=== PATIENT | male | born 1960 | race Caucasian/White ===

== ENCOUNTER 2017-12-16 07:16 | Emergency (ER) | payer OTHER ==
[~2017-12-16] VITALS: Ht 182.9 cm; Wt 127.0 kg
[~2017-12-16 07:16] MED LIST: LEVO500T59 PO
[2017-12-16] MEDS ORDERED: IV NORMAL SALINE 1000ML BAG 1,000 ML IV ONE (07:30)
[2017-12-16 07:38] LABS: BASO % 1 % (0-3); EOS # 0.3 x10^3/uL (0.0-0.7); EOS % 5 % (0-3); HEMATOCRIT 46.4 % (39.0-53.0); HEMOGLOBIN 16.4 g/dL (13.0-17.5); LYMPH # 1.2 x10^3/uL (1.0-4.8); LYMPH % 19 % (24-48); MEAN CORPUSCULAR HEMOGLOBIN 34 pg (25-35); MEAN CORPUSCULAR HGB CONC 35 g/dL (31-37); MEAN CORPUSCULAR VOLUME 96 fL (79-100); MONO # 0.6 x10^3/uL (0.0-1.1); MONO % 9 % (0-9); NEUT # 4.4 x10^3uL (1.8-7.7); NEUT % 67 % (31-73); PLATELET COUNT 274 x10^3/uL (140-400); RED BLOOD COUNT 4.86 x10^6/uL (4.30-5.70); RED CELL DISTRIBUTION WIDTH 12.6 % (11.5-14.5); WHITE BLOOD COUNT 6.5 x10^3/uL (4.0-11.0)
[2017-12-16 07:47] LABS: CALCIUM 9.7 mg/dL (8.5-10.1); CREATININE 1.5 mg/dL (0.7-1.3); GFR 47.9; POTASSIUM 4.3 mmol/L (3.5-5.1)
[2017-12-16 07:48] LABS: PROTHROMBIN TIME PATIENT 12.4 SEC (11.7-14.0)
[2017-12-16 07:55] LABS: ALBUMIN 4.1 g/dL (3.4-5.0); ALBUMIN/GLOBULIN RATIO 1.4 (1.0-1.7); MAGNESIUM 2.1 mg/dL (1.8-2.4); TOTAL BILIRUBIN 0.4 mg/dL (0.2-1.0); TOTAL PROTEIN 7.1 g/dL (6.4-8.2)
--- NOTE | 2017-12-16 08:25 | EKG ---
[facility] [address] [place] [address] Test Date: 2017-12-16 Test Time: 07:08:00 Pat Name: CÉSAR GONSALES Department: Room: Gender: M Relief Cook: : 1960 Requested By: NELY HUTSON Order Number: [id number] Reading MD: Sarabjit Flores MD Measurements Intervals [place] Rate: 71 P: 36 [place]: 158 QRS: -13 QRSD: 102 T: 49 QT: 386 QTc: 424 Interpretive Statements SINUS RHYTHM Electronically Signed On 12-16-2017 12:28:03 CDT by Sarabjit Flores MD
[2017-12-16 08:35] LABS: BILIRUBIN,URINE NEGATIVE (NEG); CLARITY,URINE CLEAR; COLOR,URINE YELLOW; NITRITE,URINE NEGATIVE (NEG); PROTEIN,URINE NEGATIVE (NEG-TRACE)
--- NOTE | 2017-12-16 08:44 | RAD ---
CT of the head without contrast, 12/16/2017: HISTORY: Dizziness, near syncope The ventricles are within normal limits in size. There is no shift of the midline structures. There is no evidence of acute intracranial hemorrhage or mass effect. IMPRESSION: No acute intracranial abnormality is detected. Electronically signed by: Tato Bello MD (12/16/2017 8:41 AM) [facility]
[2017-12-16 09:06] LABS: RBC,URINE 0 /HPF (0-2); WBC,URINE RARE /HPF (0-4)
[2017-12-16 09:07] LABS: BACTERIA,URINE 0 /HPF (0-FEW); SQUAMOUS EPITHELIAL CELL,UR FEW /LPF
--- NOTE | 2017-12-16 09:25 | PHYS DOC ---
Past Medical History Past Medical History: Hypertension, Prostatitis, Other Additional Past Medical Histor: lower back pain Past Surgical History: Other Additional Past Surgical Histo: R knee orthoscopy Alcohol Use: Occasionally Drug Use: None Adult General Chief Complaint Chief Complaint: DIZZY/LIGHT HEADED HPI HPI Patient is a 57 year old works for a [employer]. He went to work today at 5:30 am. He did not eat breakfast, not drinking any water. He worked yesterday. He did not drink any water last night. While he was at work , he felt dizzy, felt like he was going to pass out so he sat himself down. He was sweating and pale. He denied any chest pain, no headache. Patient'S employer called EMS to take him here for evaluation. Patient denies any fever, no abdominal pain, no nausea vomiting. he has not had this symptom the past. Patient blood sugar was 84 per EMS. She had no history of coronary artery disease, no history of diabetic, no history of blood clot disorder. Review of Systems Review of Systems Constitutional: Denies fever or chills [] Eyes: Denies change in visual acuity, redness, or eye pain [] HENT: Denies nasal congestion or sore throat [] Respiratory: Denies cough or shortness of breath [] Cardiovascular: NO CHEST PAIN GI: Denies abdominal pain, nausea, vomiting, bloody stools or diarrhea [] : Denies dysuria or hematuria [] Musculoskeletal: Denies back pain or joint pain [] Integument: Denies rash or skin lesions [] Neurologic:POSITIVE FOR WEAK, DIZZY. Endocrine: Denies polyuria or polydipsia POSITIVE FOR SWEATING. All other systems were reviewed and found to be within normal limits, except as documented in this note. Current Medications Current Medications Current Medications Medications (Trade) Dose Ordered Sig/Tom Start Time Stop Time Status Last Admin Dose Admin Sodium Chloride 1,000 ml @ 1,000 mls/hr 1X ONCE 12/16/17 07:30 12/16/17 08:29 DC 12/16/17 07:35 1,000 MLS/HR Allergies Allergies Allergies Coded Allergies Type Severity Reaction Last Updated Verified No Known Drug Allergies 09/24/15 No Physical Exam Physical Exam Constitutional: Well developed, well nourished, no acute distress, non-toxic appearance. [] HENT: Normocephalic, atraumatic, bilateral external ears normal, oropharynx moist, no oral exudates, nose normal. [] Eyes: PERRLA, EOMI, conjunctiva normal, no discharge. [] Neck: Normal range of motion, no tenderness, supple, no stridor. [] Cardiovascular:Heart rate regular rhythm, no murmur [] Lungs & Thorax: Bilateral breath sounds clear to auscultation [] Abdomen: Bowel sounds normal, soft, no tenderness, no masses, no pulsatile masses. [] Skin: Warm, dry, no erythema, no rash. [] Back: No tenderness, no CVA tenderness. [] Extremities: No tenderness, no cyanosis, no clubbing, ROM intact, no edema. [] Neurologic: Alert and oriented X 3, normal motor function, normal sensory function, no focal deficits noted. [] Psychologic: Affect normal, judgement normal, mood normal. [] Current Patient Data Vital Signs Vital Signs Date Time Temp Pulse Resp B/P (MAP) Pulse Ox O2 Delivery O2 Flow Rate FiO2 12/16/17 10:00 62 20 96 12/16/17 07:18 98.4 140/78 (98) Room Air 98.4 Lab Values Laboratory Tests Test 12/16/17 07:20 12/16/17 07:22 12/16/17 08:20 White Blood Count 6.5 x10^3/uL (4.0-11.0) Red Blood Count 4.86 x10^6/uL (4.30-5.70) Hemoglobin 16.4 g/dL (13.0-17.5) Hematocrit 46.4 % (39.0-53.0) Mean Corpuscular Volume 96 fL (79-100) Mean Corpuscular Hemoglobin 34 pg (25-35) Mean Corpuscular Hemoglobin Concent 35 g/dL (31-37) Red Cell Distribution Width 12.6 % (11.5-14.5) Platelet Count 274 x10^3/uL (140-400) Neutrophils (%) (Auto) 67 % (31-73) Lymphocytes (%) (Auto) 19 % (24-48) L Monocytes (%) (Auto) 9 % (0-9) Eosinophils (%) (Auto) 5 % (0-3) H Basophils (%) (Auto) 1 % (0-3) Neutrophils # (Auto) 4.4 x10^3uL (1.8-7.7) Lymphocytes # (Auto) 1.2 x10^3/uL (1.0-4.8) Monocytes # (Auto) 0.6 x10^3/uL (0.0-1.1) Eosinophils # (Auto) 0.3 x10^3/uL (0.0-0.7) Basophils # (Auto) 0.0 x10^3/uL (0.0-0.2) Prothrombin Time 12.4 SEC (11.7-14.0) Prothrombin Time INR 1.0 (0.8-1.1) PTT 28 SEC (24-38) Sodium Level 140 mmol/L (136-145) Potassium Level 4.3 mmol/L (3.5-5.1) Chloride Level 105 mmol/L (98-107) Carbon Dioxide Level 23 mmol/L (21-32) Anion Gap 12 (6-14) Blood Urea Nitrogen 25 mg/dL (8-26) Creatinine 1.5 mg/dL (0.7-1.3) H Estimated GFR (Cockcroft-Gault) 47.9 BUN/Creatinine Ratio 17 (6-20) Glucose Level 114 mg/dL (70-99) H Calcium Level 9.7 mg/dL (8.5-10.1) Magnesium Level 2.1 mg/dL (1.8-2.4) Total Bilirubin 0.4 mg/dL (0.2-1.0) Aspartate Amino Transferase (AST) 21 U/L (15-37) Alanine Aminotransferase (ALT) 34 U/L (16-63) Alkaline Phosphatase 84 U/L (46-116) Troponin I Quantitative < 0.017 ng/mL (0.000-0.055) Total Protein 7.1 g/dL (6.4-8.2) Albumin 4.1 g/dL (3.4-5.0) Albumin/Globulin Ratio 1.4 (1.0-1.7) Glucose (Fingerstick) 117 mg/dL (70-99) H Urine Collection Type Unknown Urine Color Yellow Urine Clarity Clear Urine pH 5.0 Urine Specific [place] >=1.030 Urine Protein Negative mg/dL (NEG-TRACE) Urine Glucose (UA) Negative mg/dL (NEG) Urine Ketones (Stick) Trace mg/dL (NEG) Urine Blood Negative (NEG) Urine Nitrite Negative (NEG) Urine Bilirubin Negative (NEG) Urine Urobilinogen Dipstick 1.0 mg/dL (0.2 mg/dL) Urine Leukocyte Esterase Negative (NEG) Urine RBC 0 /HPF (0-2) Urine WBC Rare /HPF (0-4) Urine Squamous Epithelial Cells Few /LPF Urine Bacteria 0 /HPF (0-FEW) Urine Mucus Slight /LPF Laboratory Tests 12/16/17 07:20 Laboratory Tests 12/16/17 07:20 EKG EKG ekg: read at 7:10 am, HEART RATE OF 75 BPM, NO STEMI. [] Radiology/Procedures Radiology/Procedures [][facility] [address] [place] [address] IMAGING REPORT Signed PATIENT: CÉSAR GONSALES ACCOUNT: [id number] : 1960 LOCATION: ER AGE: 57 SEX: M EXAM STATUS: REG ER ORD. PHYSICIAN: NELY HUTSON DO REASON: DIZZINESS, NEAR SYNCOPE PROCEDURE: CT HEAD WO CONTRAST CT of the head without contrast, 12/16/2017: HISTORY: Dizziness, near syncope The ventricles are within normal limits in size. There is no shift of the midline structures. There is no evidence of acute intracranial hemorrhage or mass effect. IMPRESSION: No acute intracranial abnormality is detected. Electronically signed by: Tato Bello MD (12/16/2017 8:41 AM) [facility] DICTATED and SIGNED BY: TATO BELLO MD DATE: 12/16/17 0839 Impressions: near syncope, dehydration Course & Med Decision Making Course & Med Decision Making Pertinent Labs and Imaging studies reviewed. (See chart for details) he was given IV fluid in the ER, he felt much better. He got up and went to the bathroom without a problem. Patient would like to go home, he liked to follow with his family doctor next week. Dragon Disclaimer Dragon Disclaimer This electronic medical record was generated, in whole or in part, using a voice recognition dictation system. Departure Departure Impression: Primary Impression: Near syncope Additional Impression: Dehydration Disposition: 01 HOME, SELF-CARE Condition: STABLE Referrals: JANNY JASON MD (PCP) Follow up with your doctor on Tuesday for reevaluation, return to ER [facility] if you have worsen symptoms. Patient Instructions: Dehydration, Adult, [id number], Near-Syncope Problem Qualifiers NELY HUTSON DO Dec 16, 2017 09:25
[2017-12-16 10:00] VITALS: BP 127/81
== END 2017-12-16 10:07 | disposition home or self-care (01) ==
LOC: ER 07:16
DX: R55 Syncope and collapse (principal); E86.0 Dehydration; I10 Essential (primary) hypertension
CPT/HCPCS: 36415; 70450; 80053; 81001; 82962; 83735; 84484; 85025; 85610; 85730; 93005; 96360; 99285; J7030

== ENCOUNTER 2018-03-08 05:11 | Emergency (ER) | payer OTHER ==
[~2018-03-08] VITALS: Ht 182.9 cm; Wt 127.0 kg
--- NOTE | 2018-03-08 05:32 | PHYS DOC ---
Past Medical History Past Medical History: Hypertension, Prostatitis, Other Additional Past Medical Histor: lower back pain Past Surgical History: Other Additional Past Surgical Histo: R knee orthoscopy Alcohol Use: Occasionally Drug Use: None Adult General Chief Complaint Chief Complaint: URINARY RETENTION [facility] HPI Patient is a 57 year old male who presents with urinary retention. Patient has prior history of enlarged prostate. He presents to the ER today complaining of difficulty with urinating that has been worsening over the last 2-3 days. He has still been able to void but he describes only scant amounts of urine coming out is having progressive feeling of pressure in the pelvic region. No fever or chills. No other complaints. He states he did have a similar episode 1-1/2-2 years earlier when he did have to have a Malloy catheter placed. He is normally followed by a urologist. Review of Systems Review of Systems Constitutional: Denies fever Eyes: Denies change in visual acuity HENT: Denies nasal congestion Respiratory: Denies cough or shortness of breath Cardiovascular: No additional information not addressed in HPI GI: Denies abdominal pain, nausea : Denies dysuria Musculoskeletal: Denies back pain Integument: Denies rash Neurologic: Denies headache All other systems were reviewed and found to be within normal limits, except as documented in this note. Allergies Allergies Allergies Coded Allergies Type Severity Reaction Last Updated Verified No Known Drug Allergies 09/24/15 No Physical Exam Physical Exam Constitutional: Well developed, well nourished, no acute distress, non-toxic appearance HENT: Normocephalic, atraumatic, bilateral external ears normal, oropharynx moist Eyes: PERRLA, EOMI, conjunctiva normal Neck: Normal range of motion Cardiovascular:Heart rate regular rhythm, no murmur Lungs & Thorax: Bilateral breath sounds clear to auscultation Abdomen: Bowel sounds normal, soft, no tenderness Skin: Warm, dry, no erythema Back: No tenderness, no CVA tenderness Extremities: No tenderness, no cyanosis Neurologic: Alert and oriented X 3 Psychologic: Affect normal Current Patient Data Vital Signs Vital Signs Date Time Temp Pulse Resp B/P (MAP) Pulse Ox O2 Delivery O2 Flow Rate FiO2 03/08/18 05:20 98.2 164/91 (115) 96 Room Air 98.2 Lab Values Laboratory Tests Test 03/08/18 05:46 Urine Collection Type Void Urine Color Yellow Urine Clarity Clear Urine pH 6.5 Urine Specific [place] 1.025 Urine Protein Negative mg/dL (NEG-TRACE) Urine Glucose (UA) Negative mg/dL (NEG) Urine Ketones (Stick) Negative mg/dL (NEG) Urine Blood Negative (NEG) Urine Nitrite Negative (NEG) Urine Bilirubin Negative (NEG) Urine Urobilinogen Dipstick 1.0 mg/dL (0.2 mg/dL) Urine Leukocyte Esterase Trace (NEG) Urine RBC 3-5 /HPF (0-2) Urine WBC 5-10 /HPF (0-4) Urine Squamous Epithelial Cells Few /LPF Urine Amorphous Sediment Present /HPF Urine Bacteria 0 /HPF (0-FEW) Urine Mucus Mod /LPF EKG EKG [] Radiology/Procedures Radiology/Procedures [] Course & Med Decision Making Course & Med Decision Making Pertinent Labs and Imaging studies reviewed. (See chart for details) 05:30: Patient is seen and examined. No acute distress. Will do post-void residual bladder scan. 06:20: PVR 65 mls. Urinalysis pending. 06:45: Urinalysis returned and documented above. Only 5-10 WBCs. Ultrasound was used at the bedside to further rule out any bladder distention. Patient is able to void during the ED course. Post void residual was only 65 mils. We'll discharge home. Patient is treated empirically with Levaquin. He is advised to follow-up with his primary urologist or come back to the ER if his symptoms worsen. Dragon Disclaimer Dragon Disclaimer This electronic medical record was generated, in whole or in part, using a voice recognition dictation system. Departure Departure Disposition: 01 HOME, SELF-CARE Condition: GOOD Referrals: JANNY JASON MD (PCP) Scripts Levofloxacin (LEVAQUIN) 500 Mg Tablet 500 MG PO DAILY for 5 Days, #5 TAB Prov: MADISYN CARDOZO DO 03/08/18 MADISYN CARDOZO DO Mar 08, 2018 05:32
[2018-03-08 06:32] LABS: BILIRUBIN,URINE NEGATIVE (NEG); CLARITY,URINE CLEAR; COLOR,URINE YELLOW; NITRITE,URINE NEGATIVE (NEG); PH,URINE 6.5; PROTEIN,URINE NEGATIVE (NEG-TRACE)
[2018-03-08 06:37] LABS: SQUAMOUS EPITHELIAL CELL,UR FEW /LPF
[2018-03-08 06:38] LABS: AMORPHOUS SEDIMENT,UR PRESENT /HPF; BACTERIA,URINE 0 /HPF (0-FEW)
[2018-03-08] MEDS ORDERED: LEVO500T59 PO (06:49)
[2018-03-08 06:54] VITALS: BP 158/91
== END 2018-03-08 06:57 | disposition home or self-care (01) ==
LOC: ER 05:11
DX: N40.1 Benign prostatic hyperplasia with lower urinary tract symptoms (principal); R33.8 Other retention of urine; R30.0 Dysuria; R10.2 Pelvic and perineal pain; I10 Essential (primary) hypertension
CPT/HCPCS: 81001; 99284-25

== ENCOUNTER 2018-05-31 13:13 | Emergency (ER) | payer OTHER ==
[~2018-05-31] VITALS: Ht 180.3 cm; Wt 127.0 kg
[2018-05-31 13:35] VITALS: BP 137/82
[2018-05-31] MEDS ORDERED: PHENAZOPYRIDINE 200 MG TABLET. PO ONE ×2 (14:00→15:00)
[2018-05-31 14:17] LABS: BILIRUBIN,URINE NEGATIVE (NEG); CLARITY,URINE TURBID; COLOR,URINE YELLOW; NITRITE,URINE POSITIVE (NEG); PH,URINE 6.5; PROTEIN,URINE 100 mg/dL (NEG-TRACE); UROBILINOGEN,URINE 0.2 mg/dL (0.2 mg/dL)
[2018-05-31 14:28] LABS: BACTERIA,URINE MANY /HPF (0-FEW); WBC,URINE TNTC /HPF (0-4)
[2018-05-31] MEDS ORDERED: LEVO500T59 PO (14:43)
--- NOTE | 2018-05-31 14:43 | PHYS DOC ---
Past Medical History Past Medical History: Hypertension, Prostatitis, Other Additional Past Medical Histor: lower back pain Past Surgical History: Other Additional Past Surgical Histo: R knee orthoscopy Alcohol Use: Occasionally Drug Use: None Adult General Chief Complaint Chief Complaint: URINARY RETENTION HPI HPI 58-year-old male with a history of BPH and fairly frequent episodes of urinary retention presents with 2 day history of declining ability to urinate. He states he has had quite a bit of suprapubic tenderness throughout the day today. The last several hours she's been unable to urinate at all. He denies any back or flank pain. Typical of previous episodes he's had. He has been taking Flomax without relief. He denies any nausea or vomiting. He denies any gross hematuria. Does state that his urine has been cloudy appearing as well as foul-smelling] Review of Systems Review of Systems Constitutional: Denies fever or chills [] Eyes: Denies change in visual acuity, redness, or eye pain [] HENT: Denies nasal congestion or sore throat [] Respiratory: Denies cough or shortness of breath [] Cardiovascular: No additional information not addressed in HPI [] GI: Denies abdominal pain, nausea, vomiting, bloody stools or diarrhea [] : Per history of present illness[] Musculoskeletal: Denies back pain or joint pain [] Integument: Denies rash or skin lesions [] Neurologic: Denies headache, focal weakness or sensory changes [] Endocrine: Denies polyuria or polydipsia [] All other systems were reviewed and found to be within normal limits, except as documented in this note. Current Medications Current Medications Current Medications Medications (Trade) Dose Ordered Sig/Tom Start Time Stop Time Status Last Admin Dose Admin Levofloxacin (Levaquin) 500 mg 1X ONCE 05/31/18 14:00 05/31/18 14:01 DC 05/31/18 14:05 500 MG Phenazopyridine HCl (Pyridium) 200 mg 1X ONCE 05/31/18 14:00 05/31/18 14:01 DC 05/31/18 14:05 200 MG Allergies Allergies Allergies Coded Allergies Type Severity Reaction Last Updated Verified No Known Drug Allergies 09/24/15 No Physical Exam Physical Exam Constitutional: Well developed, well nourished, no acute distress, non-toxic appearance. [] HENT: Normocephalic, atraumatic, bilateral external ears normal, oropharynx moist, no oral exudates, nose normal. [] Eyes: PERRLA, EOMI, conjunctiva normal, no discharge. [] Neck: Normal range of motion, no tenderness, supple, no stridor. [] Cardiovascular:Heart rate regular rhythm, no murmur [] Lungs & Thorax: Bilateral breath sounds clear to auscultation [] Abdomen: Suprapubic tender to palpation. [] Skin: Warm, dry, no erythema, no rash. [] Back: No tenderness, no CVA tenderness. [] Extremities: No tenderness, no cyanosis, no clubbing, ROM intact, no edema. [] Neurologic: Alert and oriented X 3, normal motor function, normal sensory function, no focal deficits noted. [] Psychologic: Affect normal, judgement normal, mood normal. [] Current Patient Data Vital Signs Vital Signs Date Time Temp Pulse Resp B/P (MAP) Pulse Ox O2 Delivery O2 Flow Rate FiO2 05/31/18 13:35 97.5 70 18 137/82 (100) 96 Room Air 97.5 Lab Values Laboratory Tests Test 05/31/18 13:30 Urine Collection Type U cath Urine Color Yellow Urine Clarity Turbid Urine pH 6.5 Urine Specific [place] 1.020 Urine Protein 100 mg/dL (NEG-TRACE) Urine Glucose (UA) Negative mg/dL (NEG) Urine Ketones (Stick) Negative mg/dL (NEG) Urine Blood Large (NEG) Urine Nitrite Positive (NEG) Urine Bilirubin Negative (NEG) Urine Urobilinogen Dipstick 0.2 mg/dL (0.2 mg/dL) Urine Leukocyte Esterase Large (NEG) Urine RBC 6-10 /HPF (0-2) Urine WBC Tntc /HPF (0-4) Urine Squamous Epithelial Cells None /LPF Urine Bacteria Many /HPF (0-FEW) Urine Mucus Marked /LPF EKG EKG [] Radiology/Procedures Radiology/Procedures [] Course & Med Decision Making Course & Med Decision Making Pertinent Labs and Imaging studies reviewed. (See chart for details) [ED course: Evaluation reveals a 58-year-old male with urinary retention. A Malloy catheter was placed without difficulty by the RN and the urine was cloudy appearing. The urinalysis did reveal a urinary tract infection. The patient was given Levaquin 500 milligrams by mouth in the department. Start the patient on antibiotics as an outpatient. Dragon Disclaimer Dragon Disclaimer This electronic medical record was generated, in whole or in part, using a voice recognition dictation system. Departure Departure Impression: Primary Impression: Urinary tract infection Additional Impression: Acute urinary retention Disposition: HOME, SELF-CARE Condition: STABLE Referrals: JANNY JASON MD (PCP) Patient Instructions: Malloy Catheter Care, Adult, Urinary Retention, Acute, Male, Urinary Tract Infection Additional Instructions: He need to follow up with your primary care doctor on Tuesday without fail. It is extremely important that you take all of your antibiotics as directed. If you develop fever or increased pain or you notice blood in your catheter he need to return to the emergency department immediately. Scripts Levofloxacin (LEVAQUIN) 500 Mg Tablet 1 TAB PO DAILY for urinary tract infection, #10 TAB Prov: MARKOS MEDINA DO 05/31/18 Problem Qualifiers Primary Impression: Urinary tract infection Urinary tract infection type: acute cystitis Hematuria presence: without hematuria Qualified Codes: N30.00 - Acute cystitis without hematuria MARKOS MEDINA DO May 31, 2018 14:43
== END 2018-05-31 15:03 | disposition home or self-care (01) ==
LOC: ER 13:13
DX: N30.00 Acute cystitis without hematuria (principal); I10 Essential (primary) hypertension
CPT/HCPCS: 51702; 81001; 87086; 87186; 99284

== ENCOUNTER 2018-10-17 17:00 | Emergency (ER) | payer OTHER ==
[~2018-10-17] VITALS: Ht 180.3 cm; Wt 127.0 kg
[2018-10-17 18:18] LABS: BASO % 0 % (0-3); EOS % 0 % (0-3); HEMATOCRIT 41.6 % (39.0-53.0); HEMOGLOBIN 14.2 g/dL (13.0-17.5); LYMPH # 0.5 x10^3/uL (1.0-4.8); LYMPH % 3 % (24-48); MEAN CORPUSCULAR HEMOGLOBIN 32 pg (25-35); MEAN CORPUSCULAR HGB CONC 34 g/dL (31-37); MEAN CORPUSCULAR VOLUME 94 fL (79-100); MONO # 1.1 x10^3/uL (0.0-1.1); MONO % 7 % (0-9); NEUT # 13.7 x10^3/uL (1.8-7.7); NEUT % 90 % (31-73); PLATELET COUNT 239 x10^3/uL (140-400); WHITE BLOOD COUNT 15.3 x10^3/uL (4.0-11.0)
--- NOTE | 2018-10-17 18:22 | PHYS DOC ---
Past Medical History Past Medical History: Hypertension, Prostatitis, Other Additional Past Medical Histor: lower back pain (ANDRADE ARMENDARIZ APRN) Past Surgical History: Other Additional Past Surgical Histo: R knee orthoscopy (ANDRADE ARMENDARIZ APRN) Alcohol Use: Occasionally Drug Use: None (ANDRADE ARMENDARIZ APRN) Adult General Chief Complaint Chief Complaint: URINARY RETENTION HPI HPI Patient is a 58 year old male who presents with urinary retention has been ongoing for 3 days. The patient also states he has been having this fever. The patient states that he has not checked fever with a thermometer. Rates his pain as 10 out of 10 in severity. Describes the pain as pressure. Has not taking medicine for this at home. He states he does have a history of enlarged prostate. States he has had this happen before and was due to a UTI. (ANDRADE ARMENDARIZ APRN) Review of Systems Review of Systems Constitutional: Reports fever or chills [] Eyes: Denies change in visual acuity, redness, or eye pain [] HENT: Denies nasal congestion or sore throat [] Respiratory: Denies cough or shortness of breath [] Cardiovascular: No additional information not addressed in HPI [] GI: Reports abdominal pain, nausea,Denies vomiting, bloody stools or diarrhea [] : Reports being unable to pee for three days. Musculoskeletal: Reports back pain or joint pain [] Integument: Denies rash or skin lesions [] Neurologic: Denies headache, focal weakness or sensory changes [] Endocrine: Denies polyuria or polydipsia [] Complete systems were reviewed and found to be within normal limits, except as documented in this note. (ANDRADE ARMENDARIZ APRN) Current Medications Current Medications Current Medications Medications (Trade) Dose Ordered Sig/Tom Start Time Stop Time Status Last Admin Dose Admin Acetaminophen (Tylenol) 500 mg PRN Q6HRS PRN 10/17/18 19:45 10/18/18 00:45 DC Ceftriaxone Sodium (Rocephin) 1 gm Q24H 10/17/18 20:00 10/18/18 00:45 DC Ciprofloxacin/ Dextrose 200 ml @ 200 mls/hr 1X ONCE 10/17/18 19:15 10/17/18 20:14 DC Fentanyl Citrate (Fentanyl 2ml Vial) 50 mcg PRN Q2HR PRN 10/17/18 19:45 10/18/18 00:45 DC Morphine Sulfate (Morphine Sulfate) 4 mg 1X ONCE 10/17/18 19:30 10/17/18 19:31 DC Ondansetron HCl (Zofran) 4 mg PRN Q6HRS PRN 10/17/18 19:45 10/18/18 00:45 DC Sodium Chloride 1,000 ml @ 100 mls/hr Q10H 10/17/18 19:45 10/18/18 00:45 DC Tamsulosin HCl (Flomax) 0.4 mg QHS 10/17/18 21:00 10/18/18 00:45 DC Tramadol HCl (Ultram) 50 mg PRN Q6HRS PRN 10/17/18 19:45 10/18/18 00:45 DC (ANDRADE JEFFERSON DO) Allergies Allergies Allergies Coded Allergies Type Severity Reaction Last Updated Verified I S O L A T I O N *CONTACT* Allergy Unknown 06/05/18 Yes No Known Medication Allergies Allergy Unknown 06/05/18 Yes (ANDRADE JEFFERSON DO) Physical Exam Physical Exam Constitutional: Well developed, well nourished, no acute distress, non-toxic appearance. [] HENT: Normocephalic, atraumatic, bilateral external ears normal, oropharynx moist, no oral exudates, nose normal. [] Eyes: PERRLA, EOMI, conjunctiva normal, no discharge. [] Neck: Normal range of motion, no tenderness, supple, no stridor. [] Cardiovascular:Heart rate regular rhythm, no murmur [] Lungs & Thorax: Bilateral breath sounds clear to auscultation [] Abdomen: Bowel sounds normal, soft, tenderness to lower abdomen, no masses, no pulsatile masses. [] Skin: Warm, dry, no erythema, no rash. [] Back: No tenderness, no CVA tenderness. [] Extremities: No tenderness, no cyanosis, no clubbing, ROM intact, no edema. [] Neurologic: Alert and oriented X 3, normal motor function, normal sensory function, no focal deficits noted. [] Psychologic: Affect normal, judgement normal, mood normal. [] (ANDRADE ARMENDARIZ APRN) Current Patient Data Vital Signs Vital Signs Date Time Temp Pulse Resp B/P (MAP) Pulse Ox O2 Delivery O2 Flow Rate FiO2 10/17/18 20:00 80 18 96 10/17/18 17:15 102.2 142/76 (98) Room Air 102.2 (JEFFERSON,ANDRADE R DO) Lab Values Laboratory Tests Test 10/17/18 17:45 10/17/18 18:05 White Blood Count 15.3 x10^3/uL (4.0-11.0) H Red Blood Count 4.40 x10^6/uL (4.30-5.70) Hemoglobin 14.2 g/dL (13.0-17.5) Hematocrit 41.6 % (39.0-53.0) Mean Corpuscular Volume 94 fL (79-100) Mean Corpuscular Hemoglobin 32 pg (25-35) Mean Corpuscular Hemoglobin Concent 34 g/dL (31-37) Red Cell Distribution Width 13.0 % (11.5-14.5) Platelet Count 239 x10^3/uL (140-400) Neutrophils (%) (Auto) 90 % (31-73) H Lymphocytes (%) (Auto) 3 % (24-48) L Monocytes (%) (Auto) 7 % (0-9) Eosinophils (%) (Auto) 0 % (0-3) Basophils (%) (Auto) 0 % (0-3) Neutrophils # (Auto) 13.7 x10^3/uL (1.8-7.7) H Lymphocytes # (Auto) 0.5 x10^3/uL (1.0-4.8) L Monocytes # (Auto) 1.1 x10^3/uL (0.0-1.1) Eosinophils # (Auto) 0.0 x10^3/uL (0.0-0.7) Basophils # (Auto) 0.0 x10^3/uL (0.0-0.2) Segmented Neutrophils % 83 % (35-66) H Band Neutrophils % 8 % (0-9) Lymphocytes % 5 % (24-48) L Monocytes % 4 % (0-10) Toxic Vacuolation Slight Platelet Estimate Adequate (ADEQUATE) Sodium Level 137 mmol/L (136-145) Potassium Level 3.6 mmol/L (3.5-5.1) Chloride Level 101 mmol/L (98-107) Carbon Dioxide Level 23 mmol/L (21-32) Anion Gap 13 (6-14) Blood Urea Nitrogen 19 mg/dL (8-26) Creatinine 1.6 mg/dL (0.7-1.3) H Estimated GFR (Cockcroft-Gault) 44.3 BUN/Creatinine Ratio 12 (6-20) Glucose Level 116 mg/dL (70-99) H Lactic Acid Level 0.9 mmol/L (0.4-2.0) Calcium Level 9.1 mg/dL (8.5-10.1) Total Bilirubin 0.5 mg/dL (0.2-1.0) Aspartate Amino Transferase (AST) 18 U/L (15-37) Alanine Aminotransferase (ALT) 24 U/L (16-63) Alkaline Phosphatase 66 U/L (46-116) Total Protein 7.0 g/dL (6.4-8.2) Albumin 3.5 g/dL (3.4-5.0) Albumin/Globulin Ratio 1.0 (1.0-1.7) Urine Collection Type Unknown Urine Color Yellow Urine Clarity Clear Urine pH 5.0 Urine Specific [place] 1.025 Urine Protein Negative mg/dL (NEG-TRACE) Urine Glucose (UA) Negative mg/dL (NEG) Urine Ketones (Stick) Trace mg/dL (NEG) Urine Blood Negative (NEG) Urine Nitrite Negative (NEG) Urine Bilirubin Negative (NEG) Urine Urobilinogen Dipstick 0.2 mg/dL (0.2 mg/dL) Urine Leukocyte Esterase Trace (NEG) Urine RBC 1-2 /HPF (0-2) Urine WBC 1-4 /HPF (0-4) Urine Squamous Epithelial Cells Occ /LPF Urine Bacteria 0 /HPF (0-FEW) Laboratory Tests 10/17/18 17:45 Laboratory Tests 10/17/18 17:45 Microbiology 10/17/18 Blood Culture - Final, Complete NO GROWTH AFTER 5 DAYS 10/17/18 Urine Culture - Final, Complete 10/17/18 Urine Culture Result 1 (SABI) - Final, Complete 10/17/18 Antimicrobic Susceptibility - Final, Complete (ANDRADE JEFFERSON DO) Lab Values Laboratory Tests Test 10/17/18 17:45 10/17/18 18:05 White Blood Count 15.3 x10^3/uL (4.0-11.0) H Red Blood Count 4.40 x10^6/uL (4.30-5.70) Hemoglobin 14.2 g/dL (13.0-17.5) Hematocrit 41.6 % (39.0-53.0) Mean Corpuscular Volume 94 fL (79-100) Mean Corpuscular Hemoglobin 32 pg (25-35) Mean Corpuscular Hemoglobin Concent 34 g/dL (31-37) Red Cell Distribution Width 13.0 % (11.5-14.5) Platelet Count 239 x10^3/uL (140-400) Neutrophils (%) (Auto) 90 % (31-73) H Lymphocytes (%) (Auto) 3 % (24-48) L Monocytes (%) (Auto) 7 % (0-9) Eosinophils (%) (Auto) 0 % (0-3) Basophils (%) (Auto) 0 % (0-3) Neutrophils # (Auto) 13.7 x10^3/uL (1.8-7.7) H Lymphocytes # (Auto) 0.5 x10^3/uL (1.0-4.8) L Monocytes # (Auto) 1.1 x10^3/uL (0.0-1.1) Eosinophils # (Auto) 0.0 x10^3/uL (0.0-0.7) Basophils # (Auto) 0.0 x10^3/uL (0.0-0.2) Segmented Neutrophils % 83 % (35-66) H Band Neutrophils % 8 % (0-9) Lymphocytes % 5 % (24-48) L Monocytes % 4 % (0-10) Toxic Vacuolation Slight Platelet Estimate Adequate (ADEQUATE) Sodium Level 137 mmol/L (136-145) Potassium Level 3.6 mmol/L (3.5-5.1) Chloride Level 101 mmol/L (98-107) Carbon Dioxide Level 23 mmol/L (21-32) Anion Gap 13 (6-14) Blood Urea Nitrogen 19 mg/dL (8-26) Creatinine 1.6 mg/dL (0.7-1.3) H Estimated GFR (Cockcroft-Gault) 44.3 BUN/Creatinine Ratio 12 (6-20) Glucose Level 116 mg/dL (70-99) H Lactic Acid Level 0.9 mmol/L (0.4-2.0) Calcium Level 9.1 mg/dL (8.5-10.1) Total Bilirubin 0.5 mg/dL (0.2-1.0) Aspartate Amino Transferase (AST) 18 U/L (15-37) Alanine Aminotransferase (ALT) 24 U/L (16-63) Alkaline Phosphatase 66 U/L (46-116) Total Protein 7.0 g/dL (6.4-8.2) Albumin 3.5 g/dL (3.4-5.0) Albumin/Globulin Ratio 1.0 (1.0-1.7) Urine Collection Type Unknown Urine Color Yellow Urine Clarity Clear Urine pH 5.0 Urine Specific [place] 1.025 Urine Protein Negative mg/dL (NEG-TRACE) Urine Glucose (UA) Negative mg/dL (NEG) Urine Ketones (Stick) Trace mg/dL (NEG) Urine Blood Negative (NEG) Urine Nitrite Negative (NEG) Urine Bilirubin Negative (NEG) Urine Urobilinogen Dipstick 0.2 mg/dL (0.2 mg/dL) Urine Leukocyte Esterase Trace (NEG) Urine RBC 1-2 /HPF (0-2) Urine WBC 1-4 /HPF (0-4) Urine Squamous Epithelial Cells Occ /LPF Urine Bacteria 0 /HPF (0-FEW) Laboratory Tests 10/17/18 17:45 Laboratory Tests 10/17/18 17:45 (ANDRADE ARMENDARIZ APRN) EKG EKG [] (ANDRADE ARMENDARIZ APRN) Radiology/Procedures Radiology/Procedures [][id number] [id number] : 1960 LOCATION: ER AGE: 58 SEX: M EXAM STATUS: REG ER ORD. PHYSICIAN: ANDRADE ARMENDARIZ APRN REASON: urinary retention, abd pain PROCEDURE: CT ABDOMEN PELVIS WO CONTRAST Abdominal and Pelvis CT, Without Contrast: History: Urinary retention and abdominal pain. Comparison: None. Procedure: Axial images are obtained of the abdomen and pelvis, without IV or oral contrast. CT Abdomen without Contrast: Findings: Evaluation of solid organs is limited without contrast. Evaluation of stomach and bowel is limited without oral contrast. Liver: Normal. Spleen: Normal. Pancreas: Normal. Adrenal Glands: Normal. Kidneys: Mild prominence of the renal pelvises is likely extra renal pelvises. There is no free air or free fluid. There is no lymphadenopathy. Impression: Please see CT Pelvis without Contrast. End Impression. CT Pelvis without Contrast: Findings: The prostate is not significantly enlarged. There is a 7 mm stone in the urinary bladder. The appendix is not seen. There is no free fluid. There is no lymphadenopathy. There is no pericolonic inflammation identified. Impression: 7 mm stone in the urinary bladder. End impression PQRS Compliance Statement: One or more of the following individualized dose reduction techniques were utilized for this examination: 1. Automated exposure control 2. Adjustment of the mA and/or kV according to patient size 3. Use of iterative reconstruction technique Electronically signed by: Mahesh Malloy III, MD (10/17/2018 7:18 PM) [facility] (ANDRADE ARMENDARIZ APRN) Course & Med Decision Making Course & Med Decision Making Pertinent Labs and Imaging studies reviewed. (See chart for details) Will get labs, bladder scan, CT, and urine. Bladder scan showed 479 mL of retained urine, will have boudreaux placed. Appears to have infected urine. Also has elevated WBC. Negative Lactic acid. Discussed findings with patient and offered admission also discussed patient with Dr. Parada who went and saw patient. On reevaluation of patient said he decided that he doesn't want to be admitted. Will send home on Ke and have follow up with his urologist on Tuesday as previously scheduled. Discussed with Dr. Parada who asked to have patient sign an AMA form. (ANDRADE ARMENDARIZ APRN) Dragon Disclaimer Dragon Disclaimer This electronic medical record was generated, in whole or in part, using a voice recognition dictation system. (ANDRADE ARMENDARIZ APRN) Departure Departure Impression: Primary Impression: Acute urinary retention Additional Impression: Urinary tract infection Disposition: AGAINST MEDICAL ADVICE Admitting Physician: DEBORAH (ANDRADE ARMENDARIZ APRN) Condition: STABLE Referrals: JANNY JASON MD (PCP) Patient Instructions: Urinary Retention, Acute, Male, Urinary Tract Infection Additional Instructions: Please leave catheter in until seen by urology on Tuesday. Thank you for visiting [facility]. We appreciate you trusting us with your care. If any additional problems come up don't hesitate to return to visit us. Please follow up with your primary care provider so they can plan additional care if needed and know about the problem that you had. If symptoms worsen come back to the Emergency Department. Any concerning symptoms that start such as chest pain, shortness of air, weakness or numbness on one side of the body, running high fevers or any other concerning symptoms return to the ER. You have been prescribed an antibiotic today to help fight your infection. Please take all of the antibiotic as directed. If after 48 hours the infection is not improving, please return for more care. If the infection worsens, return to ER for additional care. Scripts Cephalexin (KEFLEX) 500 Mg Capsule 1 CAP PO BID, #14 CAP Prov: ANDRADE ARMENDARIZ APRN 10/17/18 Attending Signature Attending Signature I have reviewed the PA/CAST SHELL GRINDER's note and plan of care. I was available for consu ltation as needed during the patient's visit in the emergency department. I agree with the clinical impression, plan, and disposition. (ANDRADE JEFFERSON DO) Problem Qualifiers Additional Impression: Urinary tract infection Urinary tract infection type: acute cystitis Hematuria presence: with hematuria Qualified Codes: N30.01 - Acute cystitis with hematuria ANDRADE ARMENDARIZ APRN Oct 17, 2018 18:22 ANDRADE JEFFERSON DO Oct 23, 2018 00:03
[2018-10-17 18:23] LABS: BILIRUBIN,URINE NEGATIVE (NEG); CLARITY,URINE CLEAR; COLOR,URINE YELLOW; NITRITE,URINE NEGATIVE (NEG); PROTEIN,URINE NEGATIVE (NEG-TRACE); UROBILINOGEN,URINE 0.2 mg/dL (0.2 mg/dL)
[2018-10-17 18:35] LABS: BACTERIA,URINE 0 /HPF (0-FEW); SQUAMOUS EPITHELIAL CELL,UR OCC /LPF
[2018-10-17 18:38] LABS: CALCIUM 9.1 mg/dL (8.5-10.1); CREATININE 1.6 mg/dL (0.7-1.3); GFR 44.3; POTASSIUM 3.6 mmol/L (3.5-5.1)
[2018-10-17 18:44] LABS: ALBUMIN 3.5 g/dL (3.4-5.0); TOTAL BILIRUBIN 0.5 mg/dL (0.2-1.0)
[2018-10-17] MEDS ORDERED: cefTRIAXone IV Push 2 GM VIAL. IVP ONE (19:15)
[2018-10-17] MEDS ORDERED: CIPROFLOXACIN 400MG PREMIX 200 ML IV ONE (19:15)
--- NOTE | 2018-10-17 19:21 | RAD ---
Abdominal and Pelvis CT, Without Contrast: History: Urinary retention and abdominal pain. Comparison: None. Procedure: Axial images are obtained of the abdomen and pelvis, without IV or oral contrast. CT Abdomen without Contrast: Findings: Evaluation of solid organs is limited without contrast. Evaluation of stomach and bowel is limited without oral contrast. Liver: Normal. Spleen: Normal. Pancreas: Normal. Adrenal Glands: Normal. Kidneys: Mild prominence of the renal pelvises is likely extra renal pelvises. There is no free air or free fluid. There is no lymphadenopathy. Impression: Please see CT Pelvis without Contrast. End Impression. CT Pelvis without Contrast: Findings: The prostate is not significantly enlarged. There is a 7 mm stone in the urinary bladder. The appendix is not seen. There is no free fluid. There is no lymphadenopathy. There is no pericolonic inflammation identified. Impression: 7 mm stone in the urinary bladder. End impression PQRS Compliance Statement: One or more of the following individualized dose reduction techniques were utilized for this examination: 1. Automated exposure control 2. Adjustment of the mA and/or kV according to patient size 3. Use of iterative reconstruction technique Electronically signed by: Mahesh Malloy III, MD (10/17/2018 7:18 PM) [facility]
[2018-10-17] MEDS ORDERED: MORPHINE SULFATE 4 MG/ML VIAL. IV ONE (19:30)
[2018-10-17] MEDS ORDERED: ONDANSETRON PF 4 MG/2 ML VIAL. IV ONE (19:30)
[2018-10-17 19:32] LABS: % BANDS 8 % (0-9); % LYMPHS 5 % (24-48); % MONOS 4 % (0-10); % SEGS 83 % (35-66); PLT ESTIMATE ADEQUATE (ADEQUATE); TOXIC VACUOLATION SLIGHT
[2018-10-17] MEDS ORDERED: IV NORMAL SALINE 1000ML BAG 1,000 ML IV SCH (19:45)
[2018-10-17] MEDS ORDERED: ACETAMINOPHEN 500 MG TABLET PO PRN (19:45)
[2018-10-17] MEDS ORDERED: ONDANSETRON PF 4 MG/2 ML VIAL. IV PRN (19:45)
[2018-10-17] MEDS ORDERED: fentaNYL PF VIAL 100 MCG/2 ML VIAL IV PRN (19:45)
[2018-10-17] MEDS ORDERED: traMADol 50 MG TABLET PO PRN (19:45)
--- NOTE | 2018-10-17 19:47 | PDOC1 ---
History and Physical Date of Admission Date of Admission DATE: 10/17/18 TIME: 19:41 Identification/Chief Complaint Chief Complaint Can't urinate for 2-3 days Source Source: Caregiver, Chart review, Patient History of Present Illness History of Present Illness 58-year-old white male, takes Flomax at home, history of prostatitis in the past, chief complaint was can't urinate x 2-3 days straight catheter was done at ER and drained 400 mL CAT scan abdomen and pelvis done and showed 7 mm urinary bladder stone Patient follows with an outside urologist Dr. Woods Has been on Levaquin for multiple times for UTI He has some suprapubic pain, otherwise no dysuria. He does have weak stream and signs of BPH but prostate is not enlarged on CAT scan We are admitted with consult to urology, make nothing by mouth post midnight - treat UTI. He is febrile 102, tachycardic at ER with sodium 130 Creatinine 1.6 He has no allergies to penicillin Past Medical History Renal/: Acute renal failure, Benign prostatic enlarg., Other (prostatitis) Past Surgical History Past Surgical History: No pertinent history Family History Family History: No Significant Social History Smoke: No ALCOHOL: none Drugs: None Current Problem List Problem List Problems Medical Problems: (1) Acute urinary retention Status: Acute (2) Nephrolithiasis Status: Acute (3) Urinary tract infection Status: Acute Current Medications Current Medications Current Medications Ceftriaxone Sodium (Rocephin) 2 gm 1X ONCE IVP ; Start 10/17/18 at 19:15; Stop 10/17/18 at 19:15; Status DC Ciprofloxacin/ Dextrose 200 ml @ 200 mls/hr 1X ONCE IV ; Start 10/17/18 at 19:15; Stop 10/17/18 at 20:14 Morphine Sulfate (Morphine Sulfate) 4 mg 1X ONCE IV ; Start 10/17/18 at 19:30; Stop 10/17/18 at 19:31; Status DC Ondansetron HCl (Zofran) 4 mg 1X ONCE IV ; Start 10/17/18 at 19:30; Stop 10/17/18 at 19:31; Status DC Active Scripts Active Levaquin (Levofloxacin) 500 Mg Tablet 1 Tab PO DAILY Levaquin (Levofloxacin) 500 Mg Tablet 500 Mg PO DAILY 5 Days Levaquin (Levofloxacin) 500 Mg Tablet 1 Tab PO DAILY Allergies Allergies: Coded Allergies: I S O L A T I O N *CONTACT* (Verified Allergy, Unknown, 06/05/18) mrsa No Known Medication Allergies (Verified Allergy, Unknown, 06/05/18) ROS Review of System As per history of present illness, the rest of ROS 14 point negative, reviewed Physical Exam General: Alert, Oriented X3, Cooperative, No acute distress HEENT: Atraumatic, PERRLA, EOMI Lungs: Clear to auscultation, Normal air movement Heart: S1S2, RRR, no thrills, no rubs, no gallops, no murmurs Cardiovascular: S1, S2 Abdomen: Normal bowel sounds, Soft, No tenderness, No hepatosplenomegaly, No masses Male Genitals Exam: normal genitalia, normal prostate, other (moderately palpable urinary bladder) Extremities: No clubbing, No cyanosis, No edema, Normal pulses, No tenderness/ swelling Skin: No rashes, No breakdown, No significant lesion Neuro: Normal gait, Normal speech, Strength at 5/5 X4 ext, Normal tone, Sensation intact, Cranial nerves 3-12 NL, Reflexes 2+ Psych/Mental Status: Mental status NL, Mood NL Vitals Vitals Vital Signs Date Time Temp Pulse Resp B/P (MAP) Pulse Ox O2 Delivery O2 Flow Rate FiO2 10/17/18 17:15 102.2 104 18 142/76 (98) 94 Room Air 102.2 Labs Labs Laboratory Tests Test 10/17/18 17:45 10/17/18 18:05 White Blood Count 15.3 x10^3/uL (4.0-11.0) Red Blood Count 4.40 x10^6/uL (4.30-5.70) Hemoglobin 14.2 g/dL (13.0-17.5) Hematocrit 41.6 % (39.0-53.0) Mean Corpuscular Volume 94 fL (79-100) Mean Corpuscular Hemoglobin 32 pg (25-35) Mean Corpuscular Hemoglobin Concent 34 g/dL (31-37) Red Cell Distribution Width 13.0 % (11.5-14.5) Platelet Count 239 x10^3/uL (140-400) Neutrophils (%) (Auto) 90 % (31-73) Lymphocytes (%) (Auto) 3 % (24-48) Monocytes (%) (Auto) 7 % (0-9) Eosinophils (%) (Auto) 0 % (0-3) Basophils (%) (Auto) 0 % (0-3) Neutrophils # (Auto) 13.7 x10^3/uL (1.8-7.7) Lymphocytes # (Auto) 0.5 x10^3/uL (1.0-4.8) Monocytes # (Auto) 1.1 x10^3/uL (0.0-1.1) Eosinophils # (Auto) 0.0 x10^3/uL (0.0-0.7) Basophils # (Auto) 0.0 x10^3/uL (0.0-0.2) Segmented Neutrophils % 83 % (35-66) Band Neutrophils % 8 % (0-9) Lymphocytes % 5 % (24-48) Monocytes % 4 % (0-10) Toxic Vacuolation Slight Platelet Estimate Adequate (ADEQUATE) Sodium Level 137 mmol/L (136-145) Potassium Level 3.6 mmol/L (3.5-5.1) Chloride Level 101 mmol/L (98-107) Carbon Dioxide Level 23 mmol/L (21-32) Anion Gap 13 (6-14) Blood Urea Nitrogen 19 mg/dL (8-26) Creatinine 1.6 mg/dL (0.7-1.3) Estimated GFR (Cockcroft-Gault) 44.3 BUN/Creatinine Ratio 12 (6-20) Glucose Level 116 mg/dL (70-99) Lactic Acid Level 0.9 mmol/L (0.4-2.0) Calcium Level 9.1 mg/dL (8.5-10.1) Total Bilirubin 0.5 mg/dL (0.2-1.0) Aspartate Amino Transf (AST/SGOT) 18 U/L (15-37) Alanine Aminotransferase (ALT/SGPT) 24 U/L (16-63) Alkaline Phosphatase 66 U/L (46-116) Total Protein 7.0 g/dL (6.4-8.2) Albumin 3.5 g/dL (3.4-5.0) Albumin/Globulin Ratio 1.0 (1.0-1.7) Urine Collection Type Unknown Urine Color Yellow Urine Clarity Clear Urine pH 5.0 Urine Specific [place] 1.025 Urine Protein Negative mg/dL (NEG-TRACE) Urine Glucose (UA) Negative mg/dL (NEG) Urine Ketones (Stick) Trace mg/dL (NEG) Urine Blood Negative (NEG) Urine Nitrite Negative (NEG) Urine Bilirubin Negative (NEG) Urine Urobilinogen Dipstick 0.2 mg/dL (0.2 mg/dL) Urine Leukocyte Esterase Trace (NEG) Urine RBC 1-2 /HPF (0-2) Urine WBC 1-4 /HPF (0-4) Urine Squamous Epithelial Cells Occ /LPF Urine Bacteria 0 /HPF (0-FEW) Laboratory Tests Test 10/17/18 17:45 10/17/18 18:05 White Blood Count 15.3 x10^3/uL (4.0-11.0) Red Blood Count 4.40 x10^6/uL (4.30-5.70) Hemoglobin 14.2 g/dL (13.0-17.5) Hematocrit 41.6 % (39.0-53.0) Mean Corpuscular Volume 94 fL (79-100) Mean Corpuscular Hemoglobin 32 pg (25-35) Mean Corpuscular Hemoglobin Concent 34 g/dL (31-37) Red Cell Distribution Width 13.0 % (11.5-14.5) Platelet Count 239 x10^3/uL (140-400) Neutrophils (%) (Auto) 90 % (31-73) Lymphocytes (%) (Auto) 3 % (24-48) Monocytes (%) (Auto) 7 % (0-9) Eosinophils (%) (Auto) 0 % (0-3) Basophils (%) (Auto) 0 % (0-3) Neutrophils # (Auto) 13.7 x10^3/uL (1.8-7.7) Lymphocytes # (Auto) 0.5 x10^3/uL (1.0-4.8) Monocytes # (Auto) 1.1 x10^3/uL (0.0-1.1) Eosinophils # (Auto) 0.0 x10^3/uL (0.0-0.7) Basophils # (Auto) 0.0 x10^3/uL (0.0-0.2) Segmented Neutrophils % 83 % (35-66) Band Neutrophils % 8 % (0-9) Lymphocytes % 5 % (24-48) Monocytes % 4 % (0-10) Toxic Vacuolation Slight Platelet Estimate Adequate (ADEQUATE) Sodium Level 137 mmol/L (136-145) Potassium Level 3.6 mmol/L (3.5-5.1) Chloride Level 101 mmol/L (98-107) Carbon Dioxide Level 23 mmol/L (21-32) Anion Gap 13 (6-14) Blood Urea Nitrogen 19 mg/dL (8-26) Creatinine 1.6 mg/dL (0.7-1.3) Estimated GFR (Cockcroft-Gault) 44.3 BUN/Creatinine Ratio 12 (6-20) Glucose Level 116 mg/dL (70-99) Lactic Acid Level 0.9 mmol/L (0.4-2.0) Calcium Level 9.1 mg/dL (8.5-10.1) Total Bilirubin 0.5 mg/dL (0.2-1.0) Aspartate Amino Transf (AST/SGOT) 18 U/L (15-37) Alanine Aminotransferase (ALT/SGPT) 24 U/L (16-63) Alkaline Phosphatase 66 U/L (46-116) Total Protein 7.0 g/dL (6.4-8.2) Albumin 3.5 g/dL (3.4-5.0) Albumin/Globulin Ratio 1.0 (1.0-1.7) Urine Collection Type Unknown Urine Color Yellow Urine Clarity Clear Urine pH 5.0 Urine Specific [place] 1.025 Urine Protein Negative mg/dL (NEG-TRACE) Urine Glucose (UA) Negative mg/dL (NEG) Urine Ketones (Stick) Trace mg/dL (NEG) Urine Blood Negative (NEG) Urine Nitrite Negative (NEG) Urine Bilirubin Negative (NEG) Urine Urobilinogen Dipstick 0.2 mg/dL (0.2 mg/dL) Urine Leukocyte Esterase Trace (NEG) Urine RBC 1-2 /HPF (0-2) Urine WBC 1-4 /HPF (0-4) Urine Squamous Epithelial Cells Occ /LPF Urine Bacteria 0 /HPF (0-FEW) VTE Prophylaxis Ordered VTE Prophylaxis Devices: Yes VTE Pharmacological Prophylaxi: Yes Assessment/Plan Assessment/Plan Urinary retention-status post straight cath At ER 400 mL drained 7 mm urinary bladder stone by CT Sepsis-fever, UTI, leukocytosis, tachycardic at ER AK I VMN-creatinine 1.6 History of prostatitis in the past Normal sized prostate on CAT scan PLAn: Admit 2 mN, non tele bed ok NPO post MN with consult to urology IVF, fluids, ok for diet tonight, flomax PAin control Rocephin for uti Urine cx Tylenol for fever Recheck labs tmr Avoid nephrotoxins-creatinine 1.6 FUll code seen at ER VANESSA TARANGO MD Oct 17, 2018 19:47
[2018-10-17] MEDS ORDERED: CEPH-264 PO (19:58)
[2018-10-17 20:00] VITALS: BP 112/60
[2018-10-17] MEDS ORDERED: cefTRIAXone IV Push 1 GM VIAL. IVP SCH (20:00)
[2018-10-17] MEDS ORDERED: TAMSULOSIN 0.4 MG CAP.ER.24H. PO SCH (21:00)
--- NOTE | 2018-10-23 13:21 | VNOTE ---
CALL BACK NOTE CALL BACK Microbiology 10/17/18 Blood Culture - Final, Complete NO GROWTH AFTER 5 DAYS 10/17/18 Urine Culture - Final, Complete 10/17/18 Urine Culture Result 1 (SABI) - Final, Complete 10/17/18 Antimicrobic Susceptibility - Final, Complete Blood culture +staphylococcal aureus, called Left VM SEEMA DOUGLAS APRN Oct 23, 2018 13:21
== END 2018-10-17 20:45 | disposition left against medical advice (07) ==
LOC: ER 17:00
DX: N39.0 Urinary tract infection, site not specified (principal); I10 Essential (primary) hypertension; Z91.041 Radiographic dye allergy status
CPT/HCPCS: 36415; 51702; 74176; 80053; 81001; 83605; 85007; 85025; 87040; 87077; 87086; 87186; 87205; 99285